=== PATIENT | female | born 1965 | race African-American/Black ===

== ENCOUNTER 2017-03-19 20:33 | Emergency (ER) | payer BC ==
[~2017-03-19] VITALS: Ht 167.6 cm; Wt 104.3 kg
--- NOTE | ~2017-03-19 | EKG ---
[address] [place] [address] ELECTROCARDIOGRAM REPORT Name: JAJA FINN [id number] Admission: 03/19/17 Attend Phys: Discharge: 03/19/17 Date of : 65 Report #: [id number] THIS REPORT FOR: //name// [facility] ED Test Date: 2017-03-19 Test Time: 21:02:50 Pat Name: JAJA FINN Department: Room: Gender: F [employer]: JESS : 1965 Requested By: Blair Watson Order Number: [id number] MD: Scott Rivera Measurements Intervals [place] Rate: 58 P: 48 OR: 124 QRS: 13 QRSD: 87 T: 32 QT: 425 QTc: 418 Interpretive Statements Sinus bradycardia Otherwise no significant abnormality Compared to ECG 04/25/2016 17:05:07 Sinus bradycardia no longer present Electronically Signed On 03-20-2017 17:09:00 CDT by Scott Rivera [email or web address] <ELECTRONICALLY SIGNED> By: Scott Rivera MD, [facility] 03/20/17 1709 01 01 Scott Rivera MD, FACC /EPI
[~2017-03-19 20:33] MED LIST: FLEXERIL PO; IBUPROFEN 600600 M1 PO; LEVOTHYROXIN0.125 M1 PO; PERCOCET PO; WELLBUTRIN 75 M75 M1 PO
[2017-03-19 21:24] LABS: ABSOLUTE NEUTROPHILS 3.1 thou/uL (1.4-8.2); BASOPHILS 1.3 % (0.0-2.0); EOSINOPHILS 4.3 % (0.0-3.0); HEMATOCRIT 40.3 % (37.0-47.0); HEMOGLOBIN 13.6 gm/dL (12.0-15.0); LYMPHOCYTES 49.4 % (24.0-44.0); MANUAL DIFF NO; MCH 26.6 pg (26.0-34.0); MCHC 33.8 g/dL (28.0-37.0); MCV 78.7 fL (80.0-100.0); MONOCYTES 4.9 % (1.0-8.0); PLATELET COUNT 265 thou/uL (150-400); POLYS 40.1 % (36.0-66.0); RBC 5.12 mil/uL (4.20-5.00); RDW 14.4 % (10.5-14.5); WBC 7.7 thou/uL (4.0-11.0)
[2017-03-19 21:28] LABS: ANION GAP 6 mmol/L (7-16); BUN 17 mg/dL (7-18); CALCIUM 8.9 mg/dL (8.5-10.1); CHLORIDE 108 mmol/L (98-107); CO2 28 mmol/L (21-32); CREATININE 1.2 mg/dL (0.6-1.0); GLUCOSE 80 mg/dL (74-106); POTASSIUM 4.1 mmol/L (3.5-5.1); SODIUM 142 mmol/L (136-145)
[2017-03-19 21:41] LABS: NT-PRO BRAIN NAT PEPTIDE 170 pg/mL (<300); TROPONIN-I < 0.04 ng/mL (<0.04-0.07)
[2017-03-19 23:10] VITALS: BP 141/88
== END 2017-03-19 23:17 | disposition home or self-care (01) ==
LOC: ER 20:33
PROVIDERS: Nurse Practitioner
DX: H54.62 Unqualified visual loss, left eye, normal vision right eye (principal); E03.9 Hypothyroidism, unspecified; F17.210 Nicotine dependence, cigarettes, uncomplicated; F10.99 Alcohol use, unspecified with unspecified alcohol-induced disorder; F12.10 Cannabis abuse, uncomplicated; Z98.890 Other specified postprocedural states